=== PATIENT | female | born 1990 | race Hispanic/Latino ===

== ENCOUNTER 2019-10-06 01:14 | Emergency (ER) | payer SELFPAY ==
[~2019-10-06] VITALS: Ht 154.9 cm; Wt 64.0 kg
[2019-10-06] MEDS ORDERED: SODIUM CHLORIDE 0.9% 1000ML 1,000 ML IV STA (01:21)
[2019-10-06] MEDS ORDERED: DIPHENHYDRAMINE HCL INJ 50 MG/ML VIAL IV ONE (01:30)
[2019-10-06] MEDS ORDERED: FAMOTIDINE 20 MG/2 ML VIAL IV ONE (01:30)
[2019-10-06] MEDS ORDERED: ALBUTEROL/IPRATROPIUM 3 ML NEB NEB ONE (01:30)
[2019-10-06] MEDS ORDERED: ONDANSETRON HCL INJ 2MG/ML 2ML 2 MG/ML VIAL IV PRN (01:30)
[2019-10-06] MEDS ORDERED: METHYLPREDNISOLONE SOD SUCC 125 MG/2ML VIAL IV ONE (01:30)
--- NOTE | 2019-10-06 02:44 | Emergency Department Note ---
History of Present Illnes History of Present Illness History of Present Illness This is a 28 year old female has some energy drink few hours before and she c/o SOB, throat swelling chest tightness. She went to pharmacy and was prescribed epinephrine inhaler with some relieve. Pt talks in full sentence, in NAD, sat 100 % RA, throat not swelling Arrival Mode: Car Onset (how long ago): hour(s) Radiation: Reports non-radiation Severity: moderate Onset quality: gradual Duration (how long): hour(s) Progression: improving Relieving factors: none Exacerbating factors: none Treatments prior to arrival: other (inhaler) Past Medical/Family History Physician Review I have reviewed the patient's past medical and family history. Any updates have been documented here. Past Medical History Recent Fever: No Clinical Suspicion of Infectio: No New/Unexplained Change in Ment: No Past Medical History: None Social History Smoking Cessation: Never Smoker Counseling Performed: No Alcohol Use: None Any Illegal Drug Use: No TB Exposure/Symptoms: No Physically hurt or threatened: No Other Any Pre-Existing Lines (PICC,: No Review of Systems Review of Systems Constitutional: Reports no symptoms EENTM: Reports throat swelling Cardiovascular: Reports no symptoms Respiratory: Reports as per HPI, Reports dyspnea Gastrointestinal: Reports no symptoms Genitourinary: Reports no symptoms Musculoskeletal: Reports no symptoms Integumentary: Reports no symptoms Neurological: Reports no symptoms Psychological: Reports no symptoms Endocrine: Reports no symptoms Hematological/Lymphatic: Reports no symptoms Physical Exam Related Data Vital signs reviewed: Yes (sat 100 % RA) Physical Exam CONSTITUTIONAL Constitutional: Present well-developed, Present well-nourished HENT HENT: Present normocephalic, Present atraumatic, Present oropharynx clear/moist, Present nose normal HENT L/R: Present left ext ear normal, Present right ext ear normal EYES Eyes: Reports PERRL, Reports conjunctivae normal NECK Neck: Present ROM normal PULMONARY Pulmonary: Present effort normal, Present breath sounds normal CARDIOVASCULAR Cardiovascular: Present regular rhythm, Present heart sounds normal, Present capillary refill normal, Present normal rate GASTROINTESTINAL Abdominal: Present soft, Present nontender, Present bowel sounds normal GENITOURINARY Genitourinary: Present exam deferred SKIN Skin: Present warm, Present dry MUSCULOSKELETAL Musculoskeletal: Present ROM normal NEUROLOGICAL Neurological: Present alert, Present oriented x 3, Present no gross motor or sensory deficits PSYCHOLOGICAL Psychological: Present mood/affect normal, Present judgement normal Assessment & Plan Medical Decision Making MDM allergic rx Reassessment Reassessment time: 02:43 Reassessment walks to bathroom steady gaits, in NAD Assessment & Plan Final Impression: (1) Allergic reaction Depart Disposition: HOME, SELF-CARE Medications in the ED Sodium Chloride 1,000 ml @ 0 mls/hr Q0M STAT IV ; Start 10/06/19 at 01:21; Stop 10/06/19 at 01:23; Status DC Ondansetron HCl 4 mg Q4H PRN IV NAUSEA AND VOMITING; Start 10/06/19 at 01:30; Stop 11/05/19 at 01:29; Status UNV Famotidine 20 mg ONCE ONCE IV ; Start 10/06/19 at 01:30; Stop 10/06/19 at 01:31; Status UNV Methylprednisolone Sodium Succinate 60 mg ONCE ONCE IV ; Start 10/06/19 at 01:30; Stop 10/06/19 at 01:31; Status DC Albuterol/ Ipratropium 3 ml TITRATE ONCE NEB ; Start 10/06/19 at 01:30; Stop 10/06/19 at 01:31; Status DC Diphenhydramine HCl 50 mg NOW ONCE IV ; Start 10/06/19 at 01:30; Stop 10/06/19 at 01:31; Status UNV Physician Attestation Provider Attestation VSS, sat 100 percent on RA, talks in full sentence, can be safely d/c home. YADIRA CHAVIRA MD Oct 06, 2019 02:44
[2019-10-06] MEDS ORDERED: DEXAMETHASONE SOD PHOS 10 MG/1 ML VIAL ONE (02:59)
[2019-10-06] MEDS ORDERED: DIPHENHYDRAMINE HCL 25 MG CAP ONE (02:59)
[2019-10-06] MEDS ORDERED: DIPHENHYDRAMINE HCL 25 MG CAP PO ONE (03:00)
[2019-10-06] MEDS ORDERED: DEXAMETHASONE SOD PHOS 10 MG/1 ML VIAL IM ONE (03:00)
[2019-10-06] MEDS ORDERED: ALBUTEROL/IPRATROPIUM 3 ML NEB ONE (03:00)
[2019-10-06 03:32] VITALS: BP 121/71
--- OUTSIDE RECORDS SUMMARY | 2019-10-06 21:04 | XMS REPORT | Summary of Care ---
Author Author [facility] - Health Organization [facility] - Health Address Unknown Phone Unavailable Care Team Providers Care Clock Maker Name Role Phone Lilli Hurd PCP Reason for Visit * Reason Comments NURSE VISIT pill refill Encounter Details Care Team Description Date Type Department Mya Cuello, MSN [address] [place] [address] [facility] Nurse Vst, Fp Nrpt Pills Class Encounter for surveillance of contraceptive pills (Primary Dx) 10/26/2018 Nurse Visit [facility] [address] [place] [address] Allergies No Known Allergiesdocumented as of this encounter (statuses as of 10/26/2018) Medications End Date Status Medication Sig Dispensed Refills Start Date Active norgestimate-ethinyl Take 1 tablet 3 Package 6 estradiol 0.18/0.215/0.25 by mouth 8 mg-25 mcg daily. tabletIndications: Encounter for surveillance of contraceptive pills documented as of this encounter (statuses as of 10/26/2018) Active Problems Problem Noted Date Encounter for surveillance of contraceptive pills Overview: Will contd OCPs: Will put on waiting list for Nexplanon documented as of this encounter (statuses as of 10/26/2018) Resolved Problems Problem Noted Date Resolved Date General counseling and advice on contraceptive management 11/12/2016 11/16/2017 Well woman exam with routine gynecological exam 11/12/2016 02/15/2018 Body mass index (BMI) 21.0-21.9, adult 11/12/2016 11/16/2017 Surveillance of other previously prescribed contraceptive m ethod 11/12/2016 11/16/2017 Dysmenorrhea 11/12/2016 02/15/2018 Routine screening for STI (sexually transmitted infection) 11/12/2016 11/16/2017 HPV vaccine counseling 06/18/2016 11/16/2017 Overview: Info given Encounter for IUD removal 05/28/2016 06/18/2016 Screen for STD (sexually transmitted disease) 08/12/2015 05/28/2016 Janice infection of genital region 08/12/2015 Well woman exam 08/10/2014 11/16/2017 Overview: Last done 08/2015. Pap neg then Surveillance of previously prescribed intrauterine co ntraceptive device 08/10/2014 08/12/2015 Need for HPV vaccine 08/10/2014 05/28/2016 Overview: finished series 02/2015 Presence of intrauterine contraceptive device 08/18/2013 05/28/2016 Overview: Paraguard inserted 06/2013 no problems care and examination of lactating mother 201306/19/2013 Normal delivery 05/08/2013 06/19/2013 Anemia of mother in , antepartum 02/27/2013 05/09/2013 Supervision of other high-risk 10/31/2012 05/08/2013 Overview: ICD10 Diagnosis Term Academic Manager Utility Vaginal bleeding 10/31/2012 04/26/2013 Other specified screening(V28.89) 10/31/2012 05/08/2013 Supervision of other high-risk 10/03/2012 10/03/2012 Overview: ICD10 Diagnosis Term Academic Manager Utility Less than 24 completed weeks of gestation 10/20/2007 10/03/2012 Complication of labor and delivery 10/20/2007 Overview: ICD10 Diagnosis Term Academic Manager Utility Supervision of normal first 10/20/2007 10/03/2012 Other screening 10/20/2007 10/03/2012 Encounter for routine gynecological examination 10/20/2007 10/03/2012 Overview: ICD10 Diagnosis Term Academic Manager Utility Screening examination for pulmonary tuberculosis 8 10/03/2012 Other genetic screening 10/20/2007 10/03/2012 documented as of this encounter (statuses as of 10/26/2018) Immunizations Name Administration Dates Next Due HPV 02/11/2015, 10/15/2014, 07/2014 Influenza Virus Vaccine 11/28/2012 Influenza Virus Vaccine 02/15/2018 Quad .5 mL IM 6+ MO PPD (TB) 10/03/2012 Tdap 03/28/2013 documented as of this encounter Social History Date Tobacco Use Types Packs/Day Years Used Never Smoker Smokeless Tobacco: Never Used Drinks/Week oz/Week Comments Alcohol Use 0 Standard drinks or equivalent 0.0 No Sex Assigned at Date Recorded Not on file Industry Job Start Date Occupation Not on file Not on file Not on file Travel End Travel History Travel Start No recent travel history available. documented as of this encounter Last Filed Vital Signs Reading Time Taken Comments Vital Sign 97/69 10/26/2018 1:24 PM CDT Blood Pressure 74 10/26/2018 1:24 PM CDT Pulse 36.7 C (98.1 F) 10/26/2018 1:24 PM CDT Temperature 16 10/26/2018 1:24 PM CDT Respiratory Rate - - Oxygen Saturation - - Inhaled Oxygen Concentration 60.8 kg (134 lb) 10/26/2018 1:24 PM CDT Weight 165.1 cm (5' 5") 10/26/2018 1:24 PM CDT Height 22.3 10/26/2018 1:24 PM CDT Body Mass Index documented in this encounter Patient Instructions * Patient Instructions* Megan Cui RN - 10/26/2018 1:00 PM CDT Control de la natalidad: La pldora anticonceptiva Las pldoras anticonceptivas contienen hormonas que ayudan a prevenir el embara zo impidiendo que los ovarios liberen el vulo courtney. Las pldoras se consigu en con receta de un proveedor de atencin mdica. Hay muchos tipos de pldora s anticonceptivas; si usted tiene efectos secundarios con cierta pldora, hable con lee proveedor de atencin mdica para que le receten loly pldora que func umkumiut mejor para usted. Tasa de embarazo Hable con lee proveedor de atencin mdica acerca de la eficacia de diana mtod o de control de la natalidad. Respiratory Therapy Director usar la pldora Tmese loly pldora diaria, a aproximadamente la misma hora todos los jaffe. Siga las recomendaciones de lee proveedor de atencin mdica sobre cundo c omenzar lee primer paquete de pldoras. Es posible que al principio tenga que us ar otro mtodo de control de la natalidad por loly semana o ms. Sepa lo que debe hacer si se le olvida tomarse loly pldora. (Consulte con lee proveedor de atencin mdica o libby las indicaciones del envase.) Si se salta ms de loly pldora, monica vez necesite usar un mtodo adicional de control de l a natalidad por loly semana o ms. Ventajas Baja tasa de embarazo. No se interrumpe el acto sexual. Fcil de usar. Puede ayudar a regularizar las menstruaciones. Puede reducir el riesgo de quistes ovricos y ciertos tipos de cncer. Puede aliviar los clicos menstruales, reducir el flujo menstrual y mejorar el acn. Desventajas No ofrece proteccin contra las enfermedades de transmisin sexual (ETS). El mtodo requiere rafael loly pldora puntualmente todos los jaffe. Monica vez sea menos eficaz si se cassidy con otros medicamentos. Consulte con lee f armacutico. Puede producir efectos secundarios orly nuseas, aumento de peso, sensibilid ad en los senos, cansancio o cambios en el estado de timbo. (Generalmente estos sntomas desaparecen al cabo de alejandra meses.) Puede aumentar el riesgo de cogulos de vera, ataque al corazn o ataque al cerebro. Rafael la pldora podra no ser lo ms indicado para usted si Fuma y tiene ms de 35 aos. Tiene hipertensin o loly enfermedad de la vescula biliar, el hgado o el corazn. Tiene diabetes, migraas, sangrado o problemas de las venas. (En estos casos , usted debe hablar de los riesgos con lee mdico.) Date Last Reviewed: 07/17/[id number] [employer]. [address] [place] [address] 7. Todos los derechos reservados. Esta informacin no pretende sustituir la ate ncin mdica profesional. Slo lee mdico puede diagnosticar y tratar un prob tiffanie de carol. documented in this encounter Progress Notes * Megan Cui, JEFERSON - 10/26/2018 1:00 PM CDT Pt in clinic for nurse visit: pill refill. Pt denies any problems with pills. Pt desires to continue this method, requesting refill. Annual exam and provider's orders for pill refills completed on: 11/16/2017. Pt instructed to rtc:11/2018- 4 weeks for pill refill/WWE appt Pt verbalizes understanding and agrees. All questions/concerns answered. Dispensed 1 Pack of Tri-Lo Sprintec, lot:[id number] exp: 10/2019 documented in this encounter Plan of Treatment Care Team Description Date Type Specialty 2, Pea-chp Fc Room 11/25/2018 Office Visit OB [facility] Kristi Aguiar [facility] [address] [place] [address] 11/25/2018 Office Visit OB [facility] Maintenance Due Date Last Done Comments VARICELLA VACCINES (1 of 12/06/2003 2 - 13+ 2-dose series) PAP SMEAR 08/11/2018 08/12/2015, 015, 06/20/2012, Additional history exists INFLUENZA VACCINE (#1) 2018 02/15/2018, DTaP,Tdap,and Td Vaccines 03/28/2023 03/28/2013 (2 - Td) PNEUMOCOCCAL 0-64 YEARS Aged Out No longer elig akosuale based COMBINED SERIES on patient's age to complete this topic documented as of this encounter Results Not on filedocumented in this encounter Visit Diagnoses Diagnosis Encounter for surveillance of contracep tive pills - Primary Surveillance of previously prescribed c ontraceptive pill documented in this encounter Insurance Type Payer Benefit Subscriber ID Effective Phone Address Plan / Dates Group Agency [facility] [employer] [employer] FAMILY [id number] 2017- [address] [employer] Present [address] [place], [place] [phone]% [phone] documented as of this encounter Advance Directives Patient Cabinet Mounter Explanation Type Date Recorded Advance Directives and Living Will Power of Field Marketing Lead Relationship Healthcare Agent Relationship Communicat ion Name Spouse Primary healthcare agent [phone] (M obile) Raymundo Mena Mother First alternate healthcare agent Nasreen Barrios
--- OUTSIDE RECORDS SUMMARY | 2019-10-06 21:04 | XMS REPORT | Summary of Care ---
Author Author [facility] - Health Organization [facility] - Health Address Unknown Phone Unavailable Care Team Providers Care Survey Research Teacher Name Role Phone Mya Cuello MSN PCP Reason for Visit * Reason Comments NURSE VISIT pill refill Encounter Details Care Team Description Date Type Department Mya Cuello, MSN [address] [place] [address] [facility] Nurse Vst, Fp Nrpt Pills Class examination or test, negative result (Primary Dx); Encounter for surveillance of contraceptive pills 04/12/2019 Nurse Visit [facility] [address] [place] [address] Allergies No Known Allergiesdocumented as of this encounter (statuses as of 04/12/2019) Medications End Date Status Medication Sig Dispensed Refills Start Date Active norgestimate-ethinyl Take 1 tablet 1 Package 11 estradiol 0.18/0.215/0.25 by mouth 9 mg-25 mcg daily. tabletIndications: Encounter for surveillance of contraceptive pills documented as of this encounter (statuses as of 04/12/2019) Active Problems Problem Noted Date Dysmenorrhea 01/01/2019 Encounter for surveillance of contraceptive pills Overview: Will contd OCPs: Will put on waiting list for Nexplanon documented as of this encounter (statuses as of 04/12/2019) Resolved Problems Problem Noted Date Resolved Date [...] high-risk 10/31/2012 05/08/2013 Overview: ICD10 Diagnosis Term Club Former Utility Vaginal bleeding 10/31/2012 04/26/2013 Other specified screening(V28.89) 10/31/2012 05/08/2013 Supervision of other high-risk 10/03/2012 10/03/2012 Overview: ICD10 Diagnosis Term Club Former Utility Less than 24 completed weeks of gestation 10/20/2007 10/03/2012 Complication of labor and delivery 10/20/2007 Overview: ICD10 Diagnosis Term Club Former Utility Supervision of normal first 10/20/2007 10/03/2012 Other screening 10/20/2007 10/03/2012 Encounter for routine gynecological examination 10/20/2007 10/03/2012 Overview: ICD10 Diagnosis Term Club Former Utility Screening examination for pulmonary tuberculosis 8 10/03/2012 Other genetic screening 10/20/2007 10/03/2012 documented as of this encounter (statuses as of 04/12/2019) Immunizations Name Administration Dates Next Due HPV 02/11/2015, 10/15/2014, 07/2014 Influenza Virus Vaccine 11/28/2012 Influenza Virus Vaccine 12/22/2018, 02/15/2018 Quad .5 mL IM 6+ MO [...] Signs Reading Time Taken Comments Vital Sign 114/72 04/12/2019 9:57 AM SATELLITE TV TECHNICIAN INSTALLER Blood Pressure 79 04/12/2019 9:57 AM SATELLITE TV TECHNICIAN INSTALLER Pulse 36.8 C (98.3 F) 04/12/2019 9:57 AM SATELLITE TV TECHNICIAN INSTALLER Temperature 20 04/12/2019 9:57 AM SATELLITE TV TECHNICIAN INSTALLER Respiratory Rate - - Oxygen Saturation - - Inhaled Oxygen Concentration 57.2 kg (126 lb) 04/12/2019 9:57 AM SATELLITE TV TECHNICIAN INSTALLER Weight 165.1 cm (5' 5") 04/12/2019 9:57 AM SATELLITE TV TECHNICIAN INSTALLER Height 20.97 04/12/2019 9:57 AM SATELLITE TV TECHNICIAN INSTALLER Body Mass Index documented in this encounter Patient Instructions * Patient Instructions* Megan Cui RN - 04/12/2019 9:45 AM SATELLITE TV TECHNICIAN INSTALLER Control de la natalidad: La pldora anticonceptiva [...] que le receten loly pldora que func cesar mejor para usted. Tasa de embarazo Hable con lee proveedor de atencin mdica acerca de la eficacia de diana mtod o de control de la natalidad. Mottler Operator usar la pldora Tmese loly pldora diaria, [...] ms de 35 aos. Tiene hipertensin o olly enfermedad de la vescula biliar, el hgado o el corazn. Tiene diabetes, migraas, sangrado o problemas de las venas. (En estos casos , usted debe hablar de los riesgos con lee mdico.) [id number] [employer] [place] [address], [place], [place] [address]. Todos los derechos reservados. Esta informacin no pretende sustituir la ate ncin mdica profesional. Slo lee mdico puede diagnosticar y tratar un prob tiffanie de carol. LLITE TV TECHNICIAN INSTALLER documented in this encounter Progress Notes * Megan Cui RN - 04/12/2019 9:45 AM SATELLITE TV TECHNICIAN INSTALLER Pt in clinic for nurse visit: pill refill. Pt denies any problems with pills. Pt desires to continue this method, requesting refill. Annual exam and provider's orders for pill refills completed on: 12/22/2018. Negative upt in clinic today. Pt instructed to rtc:4months for pill refill. Dispensed 4 Packs of Tri Lo Sprintec, lot:[id number] exp: 02/2020. Patient educated on bc pill side effects, risks/ER warning signs. Pt verbalizes understanding, questions/concerns answered. LLITE TV TECHNICIAN INSTALLER * Bryanna Riddle MA - 04/12/2019 9:45 AM SATELLITE TV TECHNICIAN INSTALLER Patient presents for refill control pills. Last intercourse 2 months ago. LLITE TV TECHNICIAN INSTALLER documented in this encounter Plan of Treatment Care Team Description Date Type Specialty Pea-Rmchp Nurse Vst, Fp Nrpt Pills Class 08/11/2019 Nurse Visit [facility] Health Maintenance Due Date Last Done Comments VARICELLA VACCINES (1 of 12/06/1991 2 - 2-dose childhood series) PAP SMEAR 12/22/2021 12/22/2018, 016, 08/09/2014, Additional history exists DTaP,Tdap,and Td Vaccines 03/28/2023 03/28/2013 (2 - Td) INFLUENZA VACCINE Completed 12/22/2018, 018, 11/28/2012 PNEUMOCOCCAL 0-64 YEARS Aged Out No longer elig ible based COMBINED SERIES on patient's age to complete this topic documented as of this encounter Procedures Comments Procedure Name Priority Date/Time Associated Diag nosis POCT TEST Routine 04/12/2019 examination or 10:01 AM SATELLITE TV TECHNICIAN INSTALLER test, negative result documented in this encounter Results * POCT TEST (04/12/2019 10:01 AM SATELLITE TV TECHNICIAN INSTALLER) POCT PREG Negative On board Yes controls acceptable with C Line POCT PREG LOT # POCT PREG TEST DATE Specimen Urine - URINE, CLEAN CATCH documented in this encounter Visit Diagnoses Diagnosis examination or test, negative result - Primary Encounter for surveillance of contracep tive pills Surveillance of previously prescribed c ontraceptive pill documented in this encounter Insurance Type Payer Benefit Subscriber ID Effective Phone Address Plan / Dates Group Agency [facility] [employer] [employer] FAMILY [id number] 2018 [address] [employer] -Present [id number] [place], [place] [phone]% [phone] documented as of this encounter Advance Directives Patient Director Of Business Continuity Explanation Type Date Recorded Advance Directives and Living Will Power of Diet Clerk Relationship Healthcare Agent Relationship Communicat ion Name Spouse Primary healthcare agent [phone] (M obile) Raymundo Mena Mother First alternate healthcare agent Nasreen Barrios
--- OUTSIDE RECORDS SUMMARY | 2019-10-06 21:04 | XMS REPORT | Continuity of Care Document ---
Author Author [facility] t Organization [facility] t Address [address] [place] [address] Phone Unavailable Care Team Providers Care Marketing Production Specialist Name Role Phone NO, PCP PCP Unavailable [facility] Nurse Vst, Nrpt Pills Class Fp Attphys Unavailable Khushboo KANG, A Mya Attphys Doctor Unassigned, Name No Attphys Unavailable Problems Condition Name Condition Details Condition Category Status Onset Date Resolution Date Last Treatment Date Treating Clinician Comments Source Allergic reaction Problem Active [facility] Lower abdominal pain Lower abdominal pain Disease Active [facility] Nausea and vomiting Nausea and vomiting Disease Active [facility] Weight loss Weight loss Disease Active [facility] Allergies, Adverse Reactions, Alerts This patient has no known allergies or adverse reactions. Family History Family Member Diagnosis Comments Start Date Stop Date Source unknown Family Medical History Unknown [facility] Social History Social Habit Start Date Stop Date Quantity Comments Source Sex Assigned At [facility] Alcohol intake 2016-07-29 00:00:00 2016-07-29 00:00:00 Current non-drinker of alcohol (finding) [facility] Smoking Status Start Date Stop Date Source Never smoker [facility] Medications Ordered Medication Name Filled Medication Name Start Date Stop Da te Current Medication? Ordering Clinician Indication Dosage Frequency Signature (SIG) Comments Components Source dicyclomine (BENTYL) 10 mg capsule 2016-07-29 14:53:52 Yes 10mg Take 10 mg by mouth 4 times daily (before meals and nightly). [facility] desogestrel-ethinyl estradiol (VELIVET) 0.1/.125/.15-25 mg-m cg tablet 2011-11-18 00:00:00 Yes Contraception 1{tbl} QD Take 1 tablet by mouth daily. [facility] Vital Signs Vital Name Observation Time Observation Value Comments Source Body Temperature 2019-10-06 03:32:00 98.9 [degF] [facility] Weight 2019-10-06 02:30:00 141 [lb_av] [facility] BMI (Body Mass Index) 2019-10-06 02:30:00 26.6 kg/m2 [facility] Procedures This patient has no known procedures. Plan of Care Planned Activity Planned Date Details Comments Source Future Scheduled Test 2019-12-07 00:00:00 IMM Influenza Seas onal Dec to May (>/= 19 yrs) [code = IMM Influenza Seasonal Dec to May (>/= 19 yrs)] [facility] Scheduled Test 2011-12-06 00:00:00 Screening for kirstin gnant neoplasm of cervix (procedure) [code = 289407100] [facility] Instructions Allergic Reaction [facility] Encounters Start Date/Time End Date/Time Encounter Type Admission Type Attendi [facility] Care Department Encounter ID Source 2019-10-06 01:27:00 2019-10-06 03:32:00 Departed Emergency Room [facility] [id number] [facility] 2019-08-11 09:34:57 2019-08-11 09:58:02 Nurse Visit P lena-Rmchp Nurse Vst, Fp Nrpt Pills Class [facility] AUGER OPERATOR [facility]ERNAL & CHILD [facility] [id number] 2019-05-03 00:00:00 2019-05-03 00:00:00 Telephone Mya Cuello [facility] AUGER OPERATOR [facility] CHILD [facility] [id number] 2019-04-12 09:43:30 2019-04-12 10:45:28 Nurse Visit P ea-Rmchp Nurse Vst, Fp Nrpt Pills Class [facility] AUGER OPERATOR [facility] CHILD [facility] [id number] 2019-04-12 00:00:00 2019-04-12 00:00:00 Orders Only D octor Unassigned, [place] [facility] [id number] 2018-10-26 13:01:39 2018-10-26 13:43:26 Nurse Visit P lena-Elp Nurse Vst, Fp Nrpt Pills Class [facility] [id number] 2018-10-26 00:00:00 2018-10-26 00:00:00 Orders Only D octor Unassigned, [place] [facility] [id number] 2017-02-12 00:00:00 2017-02-12 00:00:00 Outpatient [facility] [id number] [facility] 2016-07-29 16:36:42 2016-07-29 16:36:42 Emergency [facility] [id number] [facility] 2016-07-29 16:36:41 2016-07-29 16:36:41 Emergency [facility] [id number] [facility] 2016-07-29 10:30:08 2016-07-29 10:30:08 Emergency [facility] [id number] [facility] Results This patient has no known results.
--- OUTSIDE RECORDS SUMMARY | 2019-10-06 21:04 | XMS REPORT | Summary of Care ---
Author Author [facility] - Health Organization [facility] - Health Address Unknown Phone Unavailable Care Team Providers Care Motel Operator Name Role Phone Mya Cuello PCP Encounter Details Care Team Description Date Type Department Doctor Unassigned, [place] [address] [place] [address] 04/12/2019 Orders Only [address] [address] Allergies No Known Allergiesdocumented as of this encounter (statuses as of 04/13/2019) Medications End Date Status Medication Sig Dispensed Refills Start Date Active norgestimate-ethinyl Take 1 tablet 1 Package 11 estradiol 0.18/0.215/0.25 by mouth 9 mg-25 mcg daily. tabletIndications: Encounter for surveillance of contraceptive pills documented as of this encounter (statuses as of 04/13/2019) Active Problems Problem Noted Date Dysmenorrhea 01/01/2019 Encounter for surveillance of contraceptive pills Overview: Will contd OCPs: Will put on waiting list for Nexplanon documented as of this encounter (statuses as of 04/13/2019) Resolved Problems Problem Noted Date Resolved Date [...] high-risk 10/31/2012 05/08/2013 Overview: ICD10 Diagnosis Term Repairer Sash And Door Utility Vaginal bleeding 10/31/2012 04/26/2013 Other specified screening(V28.89) 10/31/2012 05/08/2013 Supervision of other high-risk 10/03/2012 10/03/2012 Overview: ICD10 Diagnosis Term Repairer Sash And Door Utility Less than 24 completed weeks of gestation 10/20/2007 10/03/2012 Complication of labor and delivery 10/20/2007 Overview: ICD10 Diagnosis Term Repairer Sash And Door Utility Supervision of normal first 10/20/2007 10/03/2012 Other screening 10/20/2007 10/03/2012 Encounter for routine gynecological examination 10/20/2007 10/03/2012 Overview: ICD10 Diagnosis Term Repairer Sash And Door Utility Screening examination for pulmonary tuberculosis 8 10/03/2012 Other genetic screening 10/20/2007 10/03/2012 documented as of this encounter (statuses as of 04/13/2019) Immunizations Name Administration Dates Next Due HPV [...] of this encounter Last Filed Vital Signs Not on filedocumented in this encounter Plan of Treatment Care Team Description Date Type Specialty [facility] Nurse Vst, Fp Nrpt Pills Class 08/11/2019 [...] Procedure Name Priority Date/Time Associated Diag nosis [id number] CONSENT Routine 04/12/2019 12:01 AM PROOF TECHNICIAN HELPER documented in this encounter Results Not on filedocumented in this encounter Insurance Type Payer Benefit Subscriber ID Effective Phone Address Plan / Dates Group Agency [facility] FAM[facility] PLANNING FAMILY [id number] 2018 [address] [place] -Present [id number] [place], [place] [phone]% [phone] documented as of this encounter Advance Directives Patient Shearing Machine Feeder Explanation Type Date Recorded Advance Directives and Living Will Power of Evp Chief Exploration Officer Relationship Healthcare Agent Relationship Communicat ion Name Spouse Primary healthcare agent [phone] (M obile) Raymundo Mena Mother First alternate healthcare agent Nasreen Barrios
--- OUTSIDE RECORDS SUMMARY | 2019-10-06 21:04 | XMS REPORT | Summary of Care ---
Author Author [facility] - Health Organization [facility] - Health Address Unknown Phone Unavailable Care Team Providers Care Data Control Clerk Name Role Phone Mya Cuello MSN PCP Reason for Visit * Reason Comments NURSE VISIT pill refill Encounter Details Care Team Description Date Type Department Mya Culelo, MSN [address] [place] [address] [facility] Nurse Vst, Fp Nrpt Pills Class Surveillance of previously prescribed contraceptive pill (Primary Dx); Encounter for surveillance of contraceptive pills 08/11/2019 Nurse Visit [facility] [address] [place] [address] Allergies No Known Allergiesdocumented as of this encounter (statuses as of 08/11/2019) Medications End Date Status Medication Sig Dispensed Refills Start Date Active norgestimate-ethinyl Take 1 tablet 4 Package 8 estradiol 0.18/0.215/0.25 by mouth 0 mg-25 mcg daily. tabletIndications: Encounter for surveillance of contraceptive pills 08/11/2019 Discontinued (Reorder) norgestimate-ethinyl Take 1 tablet 1 Package 11 estradiol 0.18/0.215/0.25 by mouth 9 mg-25 mcg daily. tabletIndications: Encounter for surveillance of contraceptive pills documented as of this encounter (statuses as of 08/11/2019) Active Problems Problem Noted Date Dysmenorrhea 01/01/2019 Encounter for surveillance of contraceptive pills Overview: Will contd OCPs: Will put on waiting list for Nexplanon documented as of this encounter (statuses as of 08/11/2019) Resolved Problems Problem Noted Date Resolved Date [...] high-risk 10/31/2012 05/08/2013 Overview: ICD10 Diagnosis Term Legal Instructor Utility Vaginal bleeding 10/31/2012 04/26/2013 Other specified screening(V28.89) 10/31/2012 05/08/2013 Supervision of other high-risk 10/03/2012 10/03/2012 Overview: ICD10 Diagnosis Term Legal Instructor Utility Less than 24 completed weeks of gestation 10/20/2007 10/03/2012 Complication of labor and delivery 10/20/2007 Overview: ICD10 Diagnosis Term Legal Instructor Utility Supervision of normal first 10/20/2007 10/03/2012 Other screening 10/20/2007 10/03/2012 Encounter for routine gynecological examination 10/20/2007 10/03/2012 Overview: ICD10 Diagnosis Term Legal Instructor Utility Screening examination for pulmonary tuberculosis 8 10/03/2012 Other genetic screening 10/20/2007 10/03/2012 documented as of this encounter (statuses as of 08/11/2019) Immunizations Name Administration Dates Next Due HPV [...] Travel Start No recent travel history available. Date Recorded COVID-19 Exposure Response 08/11/2019 9:41 AM CDT In the last month, have you been in contact with No / Unsure someone who was confirmed or suspected to have Coronavirus / COVID-19? documented as of this encounter Last Filed Vital Signs Reading Time Taken Comments Vital Sign 120/74 08/11/2019 10:11 AM CDT Blood Pressure 77 08/11/2019 10:11 AM CDT Pulse 36.8 C (98.2 F) 08/11/2019 10:11 AM CDT Temperature 18 08/11/2019 10:11 AM CDT Respiratory Rate - - Oxygen Saturation - - Inhaled Oxygen Concentration 62.2 kg (137 lb 3.2 oz) 08/11/2019 10:11 AM CDT Weight 165.1 cm (5' 5") 08/11/2019 10:11 AM CDT Height 22.83 08/11/2019 10:11 AM CDT Body Mass Index documented in this encounter Patient Instructions * Patient Instructions* Megan Cui RN - 08/11/2019 9:45 AM CDT Patient Education Control de la natalidad: La pldora anticonceptiva [...] mtod o de control de la natalidad. Student Services Vice President usar la pldora Tmese loly pldora diaria, [...] hablar de los riesgos con lee mdico.) [phone] [employer]. [address] [place] [address] 7. Todos los derechos reservados. Esta informacin no pretende sustituir la ate ncin mdica profesional. Slo lee mdico puede diagnosticar y tratar un prob tiffanie de carol. documented in this encounter Progress Notes * Megan Cui RN - 08/11/2019 9:45 AM CDT Pt in clinic for nurse visit: pill refill. Pt denies any problems with pills. Pt desires to continue this method, requesting refill. Annual exam and provider's orders for pill refills completed on: 12/22/2018. Dagmar carvajal is on current pack and has 1 unopened pack left at home Dispensed 4 Packs of Tri Lo Sprintec, lot:[id number] exp: 01/2020. Patient educated on control pill side effects, risks/ER warning signs. . Pt to rtc in 4 months for bp check/ refill with WWE appt. Pt verbalizes understanding, questions/concerns answered. documented in this encounter Plan of Treatment Care Team Description Date Type Specialty [facility] Mya Cuello, MSN [address] [place] [address] 12/18/2019 Initial [facility]ell[facility] Visit Health Maintenance Due Date Last Done Comments VARICELLA VACCINES (1 of 12/06/1991 2 - 2-dose childhood series) Depression Screening 04/12/2020 04/12/2019 PAP SMEAR 12/22/2021 12/22/2018, 016, 08/09/2014, Additional history exists DTaP,Tdap,and Td Vaccines 03/28/2023 03/28/2013 (2 - Td) INFLUENZA VACCINE Completed 12/22/2018, 018, 11/28/2012 PNEUMOCOCCAL 0-64 YEARS Aged Out No longer elig ible based COMBINED SERIES on patient's age to complete this topic documented as of this encounter Procedures Comments Procedure Name Priority Date/Time Associated Diag nosis POCT TEST Routine 08/11/2019 Surveillan ce of 10:13 AM CDT previously prescribed contraceptive pill documented in this encounter Results * POCT TEST (08/11/2019 10:13 AM CDT) POCT PREG Negative On board Yes controls acceptable with C Line POCT PREG LOT # POCT PREG TEST DATE Specimen Urine - URINE, CLEAN CATCH documented in this encounter Visit Diagnoses Diagnosis Surveillance of previously prescribed c ontraceptive pill - Primary Encounter for surveillance of contracep tive pills Surveillance of previously prescribed c ontraceptive pill documented in this encounter Insurance Type Payer Benefit Subscriber ID Effective Phone Address Plan / Dates Group Agency [facility] FAM[facility] PLANNING FAMILY [id number] [address] [place] PLANNING -Present 2004 [place] [phone]% [phone] documented as of this encounter Advance Directives Patient Mobile Service Rv Technician Explanation Type Date Recorded Advance Directives and Living Will Power of Iron Worker Foreman Relationship Healthcare Agent Relationship Communicat ion Name Spouse Primary healthcare agent [phone] (M obile) Raymundo Mena Mother First alternate healthcare agent Nasreen Barrios
--- OUTSIDE RECORDS SUMMARY | 2019-10-06 21:04 | XMS REPORT | Summary of Care ---
Author Author [facility] - Health Organization [facility] - Health Address Unknown Phone Unavailable Care Team Providers Care Distribution Dispatcher Name Role Phone Mya Cuello MSN PCP Reason for Visit * Reason Comments Assessment sensation that her breast a re full of milk Encounter Details Care Team Description Date Type Department Mya Cuello, MSN [address] [place] [address] Assessment (sensation that her breast ar e full of milk) 05/03/2019 Telephone [facility] [address] [place] [address] Allergies No Known Allergiesdocumented as of this encounter (statuses as of 05/03/2019) Medications End Date Status Medication Sig Dispensed Refills Start Date Active norgestimate-ethinyl Take 1 tablet 1 Package 11 estradiol 0.18/0.215/0.25 by mouth 9 mg-25 mcg daily. tabletIndications: Encounter for surveillance of contraceptive pills documented as of this encounter (statuses as of 05/03/2019) Active Problems Problem Noted Date Dysmenorrhea 01/01/2019 Encounter for surveillance of contraceptive pills Overview: Will contd OCPs: Will put on waiting list for Nexplanon documented as of this encounter (statuses as of 05/03/2019) Resolved Problems Problem Noted Date Resolved Date [...] high-risk 10/31/2012 05/08/2013 Overview: ICD10 Diagnosis Term Water Server Utility Vaginal bleeding 10/31/2012 04/26/2013 Other specified screening(V28.89) 10/31/2012 05/08/2013 Supervision of other high-risk 10/03/2012 10/03/2012 Overview: ICD10 Diagnosis Term Water Server Utility Less than 24 completed weeks of gestation 10/20/2007 10/03/2012 Complication of labor and delivery 10/20/2007 Overview: ICD10 Diagnosis Term Water Server Utility Supervision of normal first 10/20/2007 10/03/2012 Other screening 10/20/2007 10/03/2012 Encounter for routine gynecological examination 10/20/2007 10/03/2012 Overview: ICD10 Diagnosis Term Water Server Utility Screening examination for pulmonary tuberculosis 8 10/03/2012 Other genetic screening 10/20/2007 10/03/2012 documented as of this encounter (statuses as of 05/03/2019) Immunizations Name Administration Dates Next Due HPV [...] Treatment Care Team Description Date Type Specialty [facility] Nurse Vst, Fp Nrpt Pills Class [...] Phone Address Plan / Dates Group Agency [facility] FAMILY PLANNING FAMILY [id number] 2018 [address] [place] PLANNING -Present 2004 [place] [place], [place] [phone]% [phone] documented as of this encounter Advance Directives Patient Launch Check Out Explanation Type Date Recorded Advance Directives and Living Will Power of Printer Slotter Feeder Relationship Healthcare Agent Relationship Communicat ion Name Spouse Primary healthcare agent [phone] (M obile) Raymundo Mena Mother First alternate healthcare agent Nasreen Barrios
--- OUTSIDE RECORDS SUMMARY | 2019-10-06 21:04 | XMS REPORT | Clinical Summary ---
Author Author [facility] Organization [facility] Address Unknown Phone Unavailable Care Team Providers Care Blanket Cutting Machine Operator Name Role Phone PCP Unavailable Allergies Comments Active Allergy Reactions Severity Noted Date No Known Allergies 06/17/2011 Medications End Date Status Medication Sig Dispensed Refills Start Date Active desogestrel-ethinyl Take 1 tablet 84 tablet 4 11/06 estradiol (VELIVET) by mouth 2 0.1/.125/.15-25 mg-mcg daily. tabletIndications: Contraception Active dicyclomine (BENTYL) 10 Take 10 mg by 0 mg capsule mouth 4 times daily (before meals and nightly). Active Problems Problem Noted Date Lower abdominal pain Nausea and vomiting Weight loss Family History Medical History Relation Name Comments Family Medical History patient denies any medical problems Unknown Relation Name Status Comments Brother Alive x 1 Daughter Alive x 1 Father Alive Maternal Grandfather Maternal Grandmother Alive Mother Alive Paternal Grandfather Paternal Grandmother Sister Alive x 1 Social History Date Tobacco Use Types Packs/Day Years Used Never Smoker Smokeless Tobacco: Never Used Drinks/Week oz/Week Comments Alcohol Use No Sex Assigned at Date Recorded Not on file Industry Job Start Date Occupation Not on file Not on file Not on file Travel End Travel History Travel Start No recent travel history available. Last Filed Vital Signs Not on file Plan of Treatment Health Maintenance Due Date Last Done Comments Cervical Cancer Scrn (3 12/06/2011 Yrs) IMM Influenza Seasonal 12/07/2019 06/17/2011 Oct to May (>/= 19 yrs) (Declined) Results Not on fileafter 10/05/2018 Insurance Type Payer Benefit Subscriber ID Effective Phone Address Plan / Dates Group [place] [employer] [employer] xxxxxx 2016-P [address] [place] [id number] PLANN[place], [place] [address] [facility] SELF-PAY SELF-PAY xxxxxxxxx 2016- [phone] [address] [place] [address]
--- OUTSIDE RECORDS SUMMARY | 2019-10-06 21:04 | XMS REPORT | Summary of Care ---
Author Author [facility] - Health Organization [facility] - Health Address Unknown Phone Unavailable Care Team Providers Care Data Warehouse Architect Name Role Phone Lilli Hurd PCP Encounter Details Care Team Description Date Type Department Doctor Unassigned, [place] [address] [place] [address] 10/26/2018 Orders Only [address] [address] Allergies No Known Allergiesdocumented as of this [...] high-risk 10/31/2012 05/08/2013 Overview: ICD10 Diagnosis Term Locator Utility Vaginal bleeding 10/31/2012 04/26/2013 Other specified screening(V28.89) 10/31/2012 05/08/2013 Supervision of other high-risk 10/03/2012 10/03/2012 Overview: ICD10 Diagnosis Term Locator Utility Less than 24 completed weeks of gestation 10/20/2007 10/03/2012 Complication of labor and delivery 10/20/2007 Overview: ICD10 Diagnosis Term Locator Utility Supervision of normal first 10/20/2007 10/03/2012 Other screening 10/20/2007 10/03/2012 Encounter for routine gynecological examination 10/20/2007 10/03/2012 Overview: ICD10 Diagnosis Term Locator Utility Screening examination for pulmonary tuberculosis 8 [...] Treatment Care Team Description Date Type Specialty Mya Cuello, MSN [address] [place] [address] [facility] Nurse Vst, Fp Nrpt Pills Class 10/26/2018 Nurse Visit [facility] Health Maintenance Due [...] Procedure Name Priority Date/Time Associated Diag nosis NO SHOW OR MISSED Routine 10/26/2018 APPOINTMENT POLICY 12:57 PM CDT ACKNOWLEDGEMENT documented in this encounter Results Not on filedocumented in this encounter Insurance Type Payer Benefit Subscriber ID Effective Phone Address Plan / Dates Group Agency [facility] FAMILY PLANNING FAMILY [id number] 2017- [address] [place] PLANNING Present 2004 [place], [place] [phone]% [phone] documented as of this encounter Advance Directives Patient Machine Heel Seat Fitter Explanation Type Date Recorded Advance Directives and Living Will Power of Rn Transfer Relationship Healthcare Agent Relationship Communicat ion Name Spouse Primary healthcare agent [phone] (M obile) Raymundo Mena Mother First alternate healthcare agent Nasreen Barrios
== END 2019-10-06 03:32 | disposition home or self-care (01) ==
LOC: FSED 01:27
DX: T78.40XA Allergy, unspecified, initial encounter (principal)
CPT/HCPCS: 96372; 99282; J1100; J2930; J7030

== ENCOUNTER 2022-09-01 12:28 | Emergency (ER) | payer SELFPAY ==
[~2022-09-01] VITALS: Ht 162.6 cm; Wt 76.3 kg
[2022-09-01 12:37] VITALS: O2SAT 97
[2022-09-01] MEDS ORDERED: SODIUM CHLORIDE 0.9% 1000ML 1,000 ML IV STA (12:54)
[2022-09-01] MEDS ORDERED: ONDANSETRON HCL INJ 2MG/ML 2ML 2 MG/ML VIAL IV ONE (13:00)
[2022-09-01] MEDS ORDERED: FAMOTIDINE 20 MG/2 ML VIAL IV ONE (13:00)
[2022-09-01] MEDS ORDERED: MAALOX MAXIMUM355 ML PO (13:02)
[2022-09-01] MEDS ORDERED: ONDANSETRON ODT4 MG PO (13:02)
[2022-09-01] MEDS ORDERED: FAMOTIDINE20 MG PO (13:02)
[2022-09-01] MEDS ORDERED: SODIUM CHLORIDE 0.9% 1000ML 1,000 ML ONE (13:07)
== END 2022-09-01 13:37 | disposition home or self-care (01) ==
LOC: FSED 12:58
DX: R11.0 Nausea (principal); K52.9 Noninfective gastroenteritis and colitis, unspecified; R10.32 Left lower quadrant pain; K29.70 Gastritis, unspecified, without bleeding; R21 Rash and other nonspecific skin eruption; F41.9 Anxiety disorder, unspecified; K21.9 Gastro-esophageal reflux disease without esophagitis; F17.210 Nicotine dependence, cigarettes, uncomplicated
CPT/HCPCS: 80048; 80076; 81003; 81025; 85025; 96374; 96375; 99284; J2405; J7030

== ENCOUNTER 2024-05-15 07:44 | Emergency (ER) | payer SELFPAY ==
[~2024-05-15 07:44] MED LIST: FAMOTIDINE20 MG PO; MAALOX MAXIMUM355 ML PO; ONDANSETRON ODT4 MG PO
[2024-05-15] MEDS: FAMOTIDINE 20 MG/2 ML VIAL IV STA (08:55)
[2024-05-15] MEDS: ONDANSETRON HCL INJ 2MG/ML 2ML 2 MG/ML VIAL IV STA (08:56)
[2024-05-15] MEDS: SODIUM CHLORIDE 0.9% 1000ML 1,000 ML IV ONE (08:56)
[2024-05-15] MEDS: KETOROLAC TROMETHAMINE 30 MG/ML VIAL IV STA (08:56)
[2024-05-15] MEDS: D5.45%NS/KCL 20MEQ 1,000 ML IV SCH (10:00)
[2024-05-15] MEDS: ASPIRIN 81 MG CHEW TAB PO ONE (10:22)
[2024-05-15] MEDS ORDERED: IOPAMIDOL 370 MG/ML 100 ML INFUS..BTL INJ ONE (10:52)
[2024-05-15] MEDS ORDERED: CEFTRIAXONE 1 GM VIAL ONE (10:57)
[2024-05-15] MEDS ORDERED: LIDOCAINE HCL 2% LOCAL 20 ML VIAL ONE (10:57)
[2024-05-15] MEDS: CEFTRIAXONE 1 GM VIAL IM ONE (11:03)
[2024-05-15 11:13] VITALS: PULSE 88; RESP 20; TEMP 97.8; O2SAT 98
[2024-05-15] MEDS ORDERED: CIPRO500 MG PO (11:20)
[2024-05-15] MEDS ORDERED: ULTRAM 50MG50 MG PO (11:22)
== END 2024-05-15 11:30 | disposition home or self-care (01) ==
LOC: FSED 07:48
DX: R10.30 Lower abdominal pain, unspecified (principal); N39.0 Urinary tract infection, site not specified; R11.0 Nausea; R51.9 Headache, unspecified; K21.9 Gastro-esophageal reflux disease without esophagitis; F41.9 Anxiety disorder, unspecified; Z11.52 Encounter for screening for COVID-19
CPT/HCPCS: 0223U; 74177; 80048; 80076; 81003; 81025; 85025; 87086; 87400; 99283; J0696; J1885; J2003; J2405; J7030; Q9967